=== PATIENT | male | born 1940 | race African-American/Black ===

== ENCOUNTER 2017-01-28 12:13 | Emergency (ER) | payer SELFPAY | END 2017-01-28 13:03 | LOC: ER 12:13 | DX: R10.9 Unspecified abdominal pain (principal); Z53.21 Procedure and treatment not carried out due to patient leaving prior to being seen by health care provider ==

== ENCOUNTER → 2018-04-05 | Outpatient (CLI) | payer MEDICARE, BC ==
--- NOTE | 2018-04-05 12:33 | RAD ---
EXAM: Chest, 2 views; left ribs, 4 views. HISTORY: Pain. COMPARISON: None. FINDINGS: Frontal and lateral views of the chest and 4 views of the left ribs are obtained. There is suspected left basilar atelectasis. There is no consolidation, pleural effusion or pneumothorax. The heart is normal in size. There are dorsal column stimulator leads overlying the mid thoracic spine. No displaced rib fracture is seen. IMPRESSION: 1. Left basilar atelectasis. 2. No acute osseous finding. Electronically signed by: Irina De La Rosa MD (04/05/2018 12:30 PM) [place] [id number]
== END | disposition home or self-care (01) ==
LOC: LAB 09:20
PROVIDERS: ATTEND Internal Medicine
DX: Z03.89 Encounter for observation for other suspected diseases and conditions ruled out (principal); R07.89 Other chest pain; J98.11 Atelectasis
CPT/HCPCS: 71046; 71100

== ENCOUNTER → 2018-04-20 | Outpatient (CLI) | payer MEDICARE, BC ==
--- NOTE | 2018-04-20 17:06 | RAD ---
Renal ultrasound. 04/20/2018 INDICATION: Chronic renal failure, stage III Discussion: Ultrasound evaluation of the kidneys was performed. Static images are submitted to PACS. Comparison exam CT of the abdomen and pelvis without contrast October 11, 2008. Discussion: The right kidney measures 10.5 x 4.8 x 4.9 cm. Left kidney measures 10.8 x 5.5 x 4.2 cm. No hydronephrosis, nephrolithiasis, or focal renal lesion is seen involving either kidney. Limited visualization of the aorta and IVC demonstrates no acute abnormality. The bladder appears partially decompressed without other gross abnormality. IMPRESSION: Grossly unremarkable sonographic appearance of the bilateral kidneys Electronically signed by: Philippe Cortez MD (04/20/2018 5:03 PM) [id number]
== END | disposition home or self-care (01) ==
LOC: US 16:01
PROVIDERS: ATTEND Internal Medicine
DX: E11.22 Type 2 diabetes mellitus with diabetic chronic kidney disease (principal); N18.3 Chronic kidney disease, stage 3 (moderate)
CPT/HCPCS: 76770